=== PATIENT | female | born 1990 | race Asian ===

== ENCOUNTER 2018-06-14 10:54 | Inpatient (IN) | payer BC, MEDICAID ==
[2018-06-17] MEDS ORDERED: Zolpidem Tartrate 5 MG TAB PO PRN (21:32)
[2018-06-17] MEDS ORDERED: HYDROcodone/Acetaminophen 5/325 mg Tablet PO PRN (21:32)
[2018-06-17] MEDS ORDERED: Ondansetron HCl/PF 4 MG/2 ML Vial IVP PRN (21:32)
[2018-06-17] MEDS ORDERED: Promethazine HCl 25 MG/ML VIAL IM PRN (21:32)
[2018-06-17] MEDS ORDERED: Lidocaine 1% (PF) 30 ML VIAL SC PRN (21:32)
[2018-06-17] MEDS ORDERED: Misoprostol 200 MCG TAB PR PRN (21:32)
[2018-06-17] MEDS ORDERED: Ibuprofen 800 MG TAB PO PRN (21:32)
[2018-06-17] MEDS ORDERED: Carboprost 250 MCG/ML AMP IM PRN (21:32)
[2018-06-17] MEDS: Lactated Ringer's 1,000 ML IV SCH (21:55)
[2018-06-17 22:12] LABS: Hemoglobin 11.9 g/dL (12.0-16.0); Mean Corpuscular HGB CONC 33.4 g/dL (32.0-36.0); Mean Corpuscular Hemoglobin 30.6 pg (27.0-31.0); Mean Corpuscular Volume 91.5 fL (78.0-98.0); Mean Platelet Volume 10.8 fL (7.4-10.4); Platelet Count 198 thou/uL (130-400); RBC Distribution Width 12.1 % (11.5-14.5); Red Blood Cell (RBC) Count 3.89 mill/uL (4.20-5.40); White Blood Cell (WBC) Count 7.5 thou/uL (4.8-10.8)
[2018-06-17 22:45] VITALS: BMI 167.5
[2018-06-17 22:50] LABS: Syphilis Antibody Nonreactive (Nonreactive); Syphilis Antibody Index 0.04 S/CO (<1.00 Non-Reactive)
[2018-06-17] MEDS: Misoprostol 100 MCG TAB VAG SCH (22:58)
[2018-06-18 00:24] LABS: HBSAg Index 0.18 S/CO (0-0.99); Hep B Surf Ag Non-Reactive S/CO (NonReactive)
[2018-06-18] MEDS: Lactated Ringer's 1,000 ML IV SCH ×4 (02:37→10:14)
[2018-06-18] MEDS ORDERED: DISCONTINUE ALL PREVIOUS NARCOTICS FS SCH (04:00)
[2018-06-18] MEDS ORDERED: Lidocaine HCl/Epinephrine 5 ML AMPUL IJ ONE (04:23)
[2018-06-18] MEDS ORDERED: Lidocaine 1% PF 5 ML VIAL ONE (04:23)
[2018-06-18] MEDS: Bupivacaine 0.5% 20 ML, fentaNYL Citrate/PF 400 MCG in Sodium Chloride 0.9% 72 ML EPIDURAL SCH ×2 (04:44→10:56)
[2018-06-18] MEDS: Misoprostol 100 MCG TAB VAG SCH ×4 (05:31→15:59)
[2018-06-18] MEDS: NS w/ Oxytocin 10 units 500 ML IV SCH ×2 (05:31→07:00)
[2018-06-18] MEDS ORDERED: Acetaminophen 325 MG TAB PO PRN (05:50)
[2018-06-18] MEDS ORDERED: Eucerin (Mineral Oil/Petrolatum,White) 30 gm Jar TOP PRN (05:50)
[2018-06-18] MEDS ORDERED: Ondansetron HCl/PF 4 MG/2 ML Vial IVP PRN (05:50)
[2018-06-18] MEDS ORDERED: ePHEDrine/0.9% NaCl/PF SYRINGE 50 mg/10 ml SLOW IVP PRN (05:50)
[2018-06-18] MEDS ORDERED: diphenhydrAMINE 50 MG/ML VIAL IVP PRN (05:50)
[2018-06-18] MEDS ORDERED: Naloxone HCl 0.4 mg/ml Vial IVP PRN ×2 (05:50)
[2018-06-18] MEDS ORDERED: Promethazine HCl 25 MG/ML VIAL IM PRN (05:50)
[2018-06-18] MEDS ORDERED: Lactated Ringer's 500 ML IV PRN (05:50)
[2018-06-18] MEDS ORDERED: Communication Order-Pharmacy FS SCH (06:00)
[2018-06-18] MEDS ORDERED: fentaNYL Citrate/PF 400 MCG, Bupivacaine 0.5% 20 ML in Sodium Chloride 0.9% 72 ML EPIDURAL SCH (06:00)
--- NOTE | 2018-06-18 08:04 | PDOC.LDHP ---
Labor and Delivery H&P Chief complaint: scheduled induction Current gestational age (weeks): 40 Dating criteria: last menstrual period Grav: 1 Current complications: none Abnormal US findings: No Past Medical History: neg Current medications: pre- vitamins Previous surgical history: none Allergies/Adverse Reactions: Allergies Allergy/AdvReac Type Severity Reaction Status Date / Time No Known Allergies Allergy Verified 06/17/18 21:47 - Physical Exam General: NAD, breathing through contractions Heart: RRR Lungs: CTAB Abdomen: gravid Extremeties: no edema FHT: category 1 - Vaginal Exam cm dilated: 5 Effacement: 100% Station: 0 - OB Labs Blood type: B RH: positive Antibody Screen: negative HIV: negative RPR: negative HEPSAg: negative 1 hour GCT: negative GBS: negative Urine drug screen: not done Rubella: immune - Assessment L&D Assessment: term patient in labor
[2018-06-18] MEDS: NS / Oxytocin 40 units/1000ml 1,000 ML IV PRN ×2 (12:30→14:42)
[2018-06-18] MEDS ORDERED: Lanolin Ointment 7 GM TUBE TOP PRN (12:53)
[2018-06-18] MEDS ORDERED: Preparation H Ointment 28 GM TUBE PR PRN (12:53)
[2018-06-18] MEDS ORDERED: traMADol HCl 50 MG TAB PO PRN (12:53)
[2018-06-18] MEDS ORDERED: Benzocaine/Menthol 20-0.5% 60 ML CAN TOP PRN (12:53)
[2018-06-18] MEDS ORDERED: Bisacodyl 10 MG SUPP PR PRN (12:53)
[2018-06-18] MEDS ORDERED: Adacel (T-DAP) 0.5 ML VIAL IM ONE (12:53)
[2018-06-18] MEDS ORDERED: Milk Of Magnesia 30 ML UDCUP PO PRN (12:53)
[2018-06-18] MEDS ORDERED: diphenhydrAMINE 25 MG CAP PO PRN (12:53)
--- NOTE | 2018-06-18 12:56 | PDOC.OPDEL ---
OB Operative/Delivery Note Delivery Dr/Surgeon: Jordon Pre-Delivery Diagnosis: elective induction Procedure/Post Delivery Dx: operative vaginal delivery Weeks gestation: 40 Anesthesia: epidural - Findings A Sex: female - 1 min: 8 - 5 min: 9 - Additional Findings/Plan Placenta delivered: spontaneous Repaired Obstetrical Laceration: 2nd degree Post delivery plan: routine recovery
[2018-06-18] MEDS ORDERED: NS / Oxytocin 40 units/1000ml 1,000 ML IV SCH (13:00)
[2018-06-18 13:25] LABS: Actual Bicarbonate (HCO3a) 21.6 mEq/L (22-28); Analyzer IN Cardio OR; Base Excess (BEa) -6.7 mEq/L (-2.0 to +3.0)
[2018-06-18 13:28] LABS: Actual Bicarbonate (HCO3v) 22 mEq/L (22-28); Analyzer IN Cardio OR; Base Excess -5.2 mEq/L (-2.0 to +3.0); pH (Cord, venous) 7.28 (7.32-7.43)
[2018-06-18] MEDS: Ibuprofen 800 MG TAB PO SCH ×2 (16:42→21:28)
[2018-06-18] MEDS: Ferrous Sulfate 325 MG TAB PO SCH (17:35)
[2018-06-18] MEDS: Docusate Calcium (SURFAK) 240 MG CAP PO SCH (21:29)
[2018-06-19] MEDS: Ibuprofen 800 MG TAB PO SCH ×3 (06:05→21:03)
--- NOTE | 2018-06-19 08:10 | PDOC.PP ---
Post Progress Note Post Day #: 1 PO intake tolerated: yes Flatus: yes Ambulation: yes Vital Signs (12 hours) Temp Pulse Resp BP 06/19/18 04:00 98.3 F 70 18 95/60 Weight Weight 133 lb - Physical Examination General: NAD Cardiovascular: no m/r/g, RRR Respiratory: clear to auscultation bilaterally, non-labored breathing Abdominal: + bowel sounds, lochia, no distention, appropriately TTP Result Diagrams: 06/17/18 21:41 Additional Labs: Post Labs Blood Type B POSITIVE 06/17/18 21:41 Hep Bs Antigen Non-Reactive S/CO (NonReactive) 06/17/18 21:41 - Assessment/Plan post day 0-1. low forceosdelivery. QBL 950..Asymptomatic. Hemagram this AM pending. Plan for d/c in AM...
[2018-06-19] MEDS: Misoprostol 100 MCG TAB VAG SCH ×3 (08:52→12:40)
[2018-06-19] MEDS: Ferrous Sulfate 325 MG TAB PO SCH ×2 (08:54→17:33)
[2018-06-19] MEDS: Docusate Calcium (SURFAK) 240 MG CAP PO SCH ×2 (09:00→21:03)
[2018-06-19] MEDS: Prenatal Vitamin 1 TAB PO SCH (09:00)
[2018-06-19] MEDS: Lactated Ringer's 1,000 ML IV SCH ×2 (09:01→22:52)
[2018-06-19 11:26] LABS: Hemoglobin 8.2 g/dL (12.0-16.0); Mean Corpuscular HGB CONC 32.7 g/dL (32.0-36.0); Mean Corpuscular Hemoglobin 30.4 pg (27.0-31.0); Mean Platelet Volume 9.8 fL (7.4-10.4); Platelet Count 168 thou/uL (130-400); RBC Distribution Width 12.3 % (11.5-14.5); Red Blood Cell (RBC) Count 2.69 mill/uL (4.20-5.40); White Blood Cell (WBC) Count 14.1 thou/uL (4.8-10.8)
[2018-06-19] MEDS ORDERED: Bupivacaine/Epinephrine 0.25% 30 ML VIAL ONE (21:00)
[2018-06-19] MEDS: NS w/ Oxytocin 10 units 500 ML IV SCH (22:53)
[2018-06-20] MEDS: Misoprostol 100 MCG TAB VAG SCH ×3 (05:41→09:04)
[2018-06-20] MEDS: Ibuprofen 800 MG TAB PO SCH (05:43)
--- NOTE | 2018-06-20 08:08 | PDOC.PP ---
Post Progress Note Post Day #: 2 PO intake tolerated: yes Flatus: yes Ambulation: yes Weight Weight 133 lb - Physical Examination General: NAD Cardiovascular: no m/r/g, RRR Respiratory: clear to auscultation bilaterally, non-labored breathing Abdominal: + bowel sounds, lochia, no distention, appropriately TTP Result Diagrams: 06/19/18 11:09 Additional Labs: Post Labs Blood Type B POSITIVE 06/17/18 21:41 Hep Bs Antigen Non-Reactive S/CO (NonReactive) 06/17/18 21:41 - Assessment/Plan Doing well post day 2. Asymptomatic blood loss anemia. d/c home. f/u 6 weeks. pnv with iron and iron rich foods d/w patient.
[2018-06-20 08:32] VITALS: BP 99/54; TEMP 99.1
[2018-06-20] MEDS: Lactated Ringer's 1,000 ML IV SCH (09:03)
[2018-06-20] MEDS: Prenatal Vitamin 1 TAB PO SCH (09:05)
[2018-06-20] MEDS: Docusate Calcium (SURFAK) 240 MG CAP PO SCH (09:05)
[2018-06-20] MEDS: Ferrous Sulfate 325 MG TAB PO SCH (09:05)
== END 2018-06-20 14:05 | disposition home or self-care (01) | DRG 775 ==
LOC: EDSTATUS 13:17 → L&D 06-17 21:03 → 3SW 06-18 15:17
PROVIDERS: ADMIT Obstetrics & Gynecology; ATTEND Obstetrics & Gynecology
PROC: 10D07Z3 Extraction of Products of Conception, Low Forceps, Via Natural or Artificial Opening (ICD-10-PCS; principal; 2018-06-18)
DX: O70.1 Second degree perineal laceration during delivery (principal); Z37.0 Single live birth; Z3A.40 40 weeks gestation of pregnancy
CPT/HCPCS: 36415; 51702; 82805; 85027; 86780; 86850; 86900; 86901; 87340; J2001; J3010; J3490; J7050